=== PATIENT | female | born 1955 | race Caucasian/White ===

== ENCOUNTER → 2016-10-05 | Outpatient (CLI) | payer BC ==
[2016-10-05 12:35] LABS: HEMATOCRIT 39.2 % (36.0-47.0); HEMOGLOBIN 13.5 g/dL (12.0-15.5); HGB HCT DIFFERENCE 1.3; MEAN CORPUSCULAR HEMOGLOBIN 29.4 pg (27.0-33.4); MEAN CORPUSCULAR HGB CONC 34.4 g/dL (32.0-36.0); MEAN CORPUSCULAR VOLUME 86 fl (80-97); RED BLOOD COUNT 4.58 10^6/uL (3.72-5.28); RED CELL DISTRIBUTION WIDTH 12.9 % (11.5-14.0); WHITE BLOOD COUNT 7.4 10^3/uL (4.0-10.5)
[2016-10-05 13:17] LABS: ALANINE AMINOTRANSFERASE 26 U/L (9-52); ALBUMIN 4.2 g/dL (3.5-5.0); ALKALINE PHOSPHATASE 53 U/L (38-126); ASPARTATE AMINO TRANSFERASE 22 U/L (14-36); BILIRUBIN,DIRECT 0.5 mg/dL (0.0-0.4); BILIRUBIN,TOTAL 1.2 mg/dL (0.2-1.3); CHOLESTEROL 241.34 mg/dL (0-200); Direct HDL 57 mg/dL (>40); MAGNESIUM 2.2 mg/dL (1.6-2.3); TOTAL PROTEIN 6.9 g/dL (6.3-8.2); TRIGLYCERIDES 144 mg/dL (<150)
[2016-10-05 13:18] LABS: ANION GAP 10 (5-19); BLOOD UREA NITROGEN 19 mg/dL (7-20); CALCIUM 9.9 mg/dL (8.4-10.2); CARBON DIOXIDE 30 mmol/L (22-30); CHLORIDE 104 mmol/L (98-107); CREATININE RESULT 0.82 mg/dL (0.52-1.25); GLUCOSE 87 mg/dL (75-110); POTASSIUM 4.5 mmol/L (3.6-5.0); SODIUM 143.6 mmol/L (137-145)
[2016-10-05 13:28] LABS: DIRECT LDL 143 mg/dL (<100)
== END ==
LOC: OD 11:44
PROVIDERS: ATTEND Internal Medicine Cardiovascular Disease
DX: E78.2 Mixed hyperlipidemia (principal); R00.2 Palpitations
CPT/HCPCS: 36415; 80048; 80061; 80076; 83735; 84443; 85027

== ENCOUNTER 2018-02-10 18:46 | Observation (INO) | payer BC ==
[2018-02-10 19:47] LABS: APPEARANCE,URINE CLEAR; BILIRUBIN,URINE NEGATIVE (NEGATIVE); COLOR,URINE YELLOW; GLUCOSE, URINE NEGATIVE (NEGATIVE); KETONES,URINE NEGATIVE (NEGATIVE); LEUKOCYTE ESTERASE,URINE TRACE (NEGATIVE); NITRITE,URINE NEGATIVE (NEGATIVE); PROTEIN,URINE NEGATIVE (NEGATIVE); UROBILINOGEN,URINE NEGATIVE mg/dL (<2.0)
[2018-02-10 21:55] LABS: ALANINE AMINOTRANSFERASE 41 U/L (9-52); ALBUMIN 3.7 g/dL (3.5-5.0); ALKALINE PHOSPHATASE 63 U/L (38-126); ANION GAP 7 (5-19); ASPARTATE AMINO TRANSFERASE 26 U/L (14-36); BILIRUBIN,DIRECT 0.3 mg/dL (0.0-0.4); BILIRUBIN,TOTAL 0.8 mg/dL (0.2-1.3); BLOOD UREA NITROGEN 22 mg/dL (7-20); CALCIUM 9.1 mg/dL (8.4-10.2); CARBON DIOXIDE 29 mmol/L (22-30); CHLORIDE 106 mmol/L (98-107); CREATINE KINASE 67 U/L (30-135); GLUCOSE 107 mg/dL (75-110); POTASSIUM 4.1 mmol/L (3.6-5.0); SODIUM 141.6 mmol/L (137-145); TOTAL PROTEIN 6.6 g/dL (6.3-8.2)
[2018-02-10 22:09] LABS: CREATINE KINASE MB 1.54 ng/mL (<4.55)
[2018-02-10 22:10] LABS: TROPONIN I < 0.012 ng/mL
[2018-02-10 22:14] LABS: ABSOLUTE EOSINOPHILS # (AUTO) 0.1 10^3/uL (0.0-0.6); ABSOLUTE LYMPHOCYTES (AUTO) 2.3 10^3/uL (0.5-4.7); ABSOLUTE MONOCYTES (AUTO) 0.6 10^3/uL (0.1-1.4); ABSOLUTE NEUT (AUTO) 3.7 10^3/uL (1.7-8.2); BASOPHILS % (AUTO) 0.7 % (0-2); EOSINOPHILS % (AUTO) 1.9 % (0-6); HEMATOCRIT 38.4 % (36.0-47.0); HEMOGLOBIN 13.3 g/dL (12.0-15.5); LYMPHOCYTES % (AUTO) 33.4 % (13-45); MEAN CORPUSCULAR HEMOGLOBIN 29.1 pg (27.0-33.4); MEAN CORPUSCULAR HGB CONC 34.6 g/dL (32.0-36.0); MEAN CORPUSCULAR VOLUME 84 fl (80-97); MONOCYTES % (AUTO) 9.5 % (3-13); PLATELET COUNT 201 10^3/uL (150-450); RED BLOOD COUNT 4.57 10^6/uL (3.72-5.28); RED CELL DISTRIBUTION WIDTH 13.1 % (11.5-14.0); SEGMENTED NEUTROPHILS % (AUTO) 54.5 % (42-78); TOTAL CELLS COUNTED % (AUTO) 100 %; WHITE BLOOD COUNT 6.8 10^3/uL (4.0-10.5)
--- NOTE | 2018-02-10 22:53 | EKG REPORT ---
SEVERITY:- NORMAL ECG - SINUS RHYTHM : Confirmed by: Brooklyn Gan MD 10-Feb-2018 22:52:18
[2018-02-11] MEDS ORDERED: NORMAL SALINE 500 ML IV ONE (00:36)
--- NOTE | 2018-02-11 01:09 | RADIOLOGY REPORT (SQ) ---
CLINICAL HISTORY: dizziness, confusion COMPARISON: None. TECHNIQUE: CT HEAD WITHOUT IV CONTRAST on 02/11/2018 12:35 AM [employer] OFFICER This exam was performed according to our departmental dose-optimization program, which includes automated exposure control, adjustment of the mA and/or kV according to patient size and/or use of iterative reconstruction technique. FINDINGS: There is no acute hemorrhage, mass effect or midline shift. Butler-white differentiation is preserved. There is no hydrocephalus. There is no significant volume loss for age. There are mild patchy hypodensities within the periventricular and subcortical white matter, consistent with microangiopathic ischemic changes. The calvarium is intact. Orbits and globes are unremarkable. The paranasal sinuses are clear. Mastoid air cells are clear. IMPRESSION: No acute intracranial findings.
[2018-02-11] MEDS ORDERED: ASPIRIN 325 MG TABLET PO ONE (02:37)
--- NOTE | 2018-02-11 03:59 | ER Document Report ---
ED General - General Chief Complaint: Dizziness Stated Complaint: DIZZINESS Time Seen by Provider: 02/11/18 00:06 Notes: Patient is a pleasant 62-year-old female presents to the ED after having 2 episodes of confusion and dizziness. Patient that the first episode happened while she was at work. She says she suddenly felt unwell and felt dizzy. She said she then felt a little bit confused and disoriented. She sat down and waited for a while and eventually symptoms resolved and she decided to go home. On her way home her symptoms recurred and therefore she put this on the road and called her daughter. Patient's daughter says that her speech was garbled and she was not making a lot of sense. Daughter said she seemed very confused and disoriented. He then called the ambulance and the daughter met her mom at the road and said her mom was clammy and unwell appearing when she got to her. Patient's confusion and speech have normalized since then. She denies ever having any focal weakness or numbness in her legs. She says that ever since this occurred she is been unable to walk with any decent balance is unable to balance herself she is standing. She denies a spinning type sensation. She denies recent illness. Eyes any chest pain or shortness of breath. No sensation of abnormal heartbeats or rapid heartbeat. TRAVEL OUTSIDE OF THE [place] IN LAST 30 DAYS: No - Related Data Allergies/Adverse Reactions: No Known Allergies Allergy (Verified 02/10/18 18:51) Past Medical History - Social History Smoking Status: Never Smoker Frequency of alcohol use: None Drug Abuse: None Family History: Reviewed & Not Pertinent Patient has suicidal ideation: No Patient has homicidal ideation: No - Past Medical History Cardiac Medical History: Reports: Hx Hypertension - bp has been elevated lately, but is not on any medications Pulmonary Medical History: Reports: Hx Asthma Denies: Hx Tuberculosis Renal/ Medical History: Denies: Hx Peritoneal Dialysis - Immunizations Immunizations up to date: Yes Hx Diphtheria, Pertussis, Tetanus Vaccination: Yes Hx Pneumococcal Vaccination: 12/08/06 Review of Systems - Review of Systems Notes: My Normal Review Basic REVIEW OF SYSTEMS: CONSTITUTIONAL : Denies fever, chills, or sweats. Denies recent illness. EENT: Denies eye, ear, throat, or mouth pain or symptoms. Denies nasal or sinus congestion. CARDIOVASCULAR: Denies chest pain. RESPIRATORY: Denies cough, cold, or chest congestion. Denies shortness of breath, difficulty breathing, or wheezing. GASTROINTESTINAL: Denies abdominal pain. Denies nausea, vomiting, or diarrhea. GENITOURINARY: Denies difficulty urinating, painful urination, burning, frequency, or blood in urine. MUSCULOSKELETAL: Denies neck or back pain or joint pain or swelling. SKIN: Denies rash or skin lesions. NEUROLOGICAL: Episodes of altered mental status with difficulty talking. Patient has difficulty in relating. PSYCHIATRIC: Denies anxiety or stress or depression. ALL OTHER SYSTEMS REVIEWED AND NEGATIVE. Physical Exam - Vital signs Vitals: Temp Pulse Resp BP Pulse Ox 98.1 F 70 18 130/87 H 99 02/10/18 18:51 02/10/18 18:51 02/10/18 18:51 02/10/18 18:51 02/10/18 18:51 - Notes Notes: General Appearance: Well nourished, alert, cooperative, no acute distress, no obvious discomfort. Vitals: reviewed, See vital signs table. Head: no swelling or tenderness to the head Eyes: PERRL, EOMI, Conjuctiva clear Mouth: No decreasd moisture Throat: No tonsillar inflammation, No airway obstruction, No lymphadenopathy Neck: Supple, no neck tenderness, No thyromegaly Lungs: No wheezing, No rales, No rhonci, No accessory muscle use, good air exchange bilaterally. Heart: Normal rate, Regular rythm, No murmur, no rub Abdomen: Normal BS, soft, No rigidity, No abdominal tenderness, No guarding, no rebound, no abdominal masses, no organomegaly Extremities: strength 5/5 in all extremities, good pulses in all extremities, no swelling or tenderness in the extremities, no edema. Skin: warm, dry, appropriate color, no rash Neuro: speech clear, oriented x 3, normal affect, responds appropriately to ques tions. Cranial nerves II through XII are intact. Distal sensation intact. Patient has good strength in all 4 extremities. When I stand the patient she is off balance. I did have her do Romberg testing she immediately starts to fall to the side when she closes her eyes and her arms start to drift. Course - Re-evaluation Re-evalutation: 02/11/18 08:37 I concern is that the patient may have had a stroke. A basis of the history of the garbled speech and disorientation and the fact that now that she is unable to walk on her own without maintaining good balance and she has positive Romberg testing. CT scan of the head does not show any evidence of bleeding. I did give patient aspirin. I spoke with the hospitalist, Dr. Pena, who agrees to evaluate the patient for consideration for admission for further workup for s trowaylon. Dictation of this chart was performed using voice recognition software; therefore, there may be some unintended grammatical errors. - Vital Signs Vital signs: Temp Pulse Resp BP Pulse Ox 97.8 F 61 12 125/76 98 02/11/18 06:28 02/11/18 07:15 02/11/18 07:15 02/11/18 07:15 02/11/18 07:15 - Laboratory Result Diagrams: 02/10/18 21:55 02/10/18 21:20 Laboratory results interpreted by me: 02/10/18 02/10/18 19:15 21:20 BUN 22 H Ur Leukocyte Esterase TRACE H Discharge - Discharge Clinical Impression: Ataxia, Dizziness, Confusion Condition: Stable Disposition: ADMITTED OBSERVATION Admitting Provider: Hospitalist Unit Admitted: Telemetry
[2018-02-11] MEDS ORDERED: MAGNESIUM HYDROXIDE SUSP 30 ML UDCUP PO PRN (04:40)
--- NOTE | 2018-02-11 06:26 | PDOC H&P ---
History of Present Illness Admission Date/PCP: 02/11/18 04:51 ARELIS ROBERTO DO Patient complains of: Dizziness History of Present Illness: YINA GUZMAN is a 62 year old female with a past medical history of aortic regurgitation and asthma who is prompted to seek evaluation in the emergency room after several episodes of palpitations, followed by dizziness, generalized weakness, confusion and difficulty with speech. In the emergency room she is found to have complete resolution of complaints and an unremarkable workup. Patient denies previous episode, recent change in medications, heat or cold intolerance, headache nausea or vomiting. She is referred to the hospitalist for admission. Past Medical History Cardiac Medical History: Reports: Hypertension - bp has been elevated lately, but is not on any medications Pulmonary Medical History: Reports: Asthma Denies: Tuberculosis Social History Information Source: Patient Lives with: Family Smoking Status: Never Smoker Frequency of Alcohol Use: None Drugs: None - Advance Directive Resuscitation Status: Full Code Family History Family History: CVA Parental Family History Reviewed: Yes Children Family History Reviewed: Yes Sibling(s) Family History Reviewed.: Yes Medication/Allergy Home Medications: Albuterol Sulfate [Albuterol Sulfate Hfa] 2 puff IH PRN 08/05/13 Ibuprofen [Motrin Ib] 800 mg PO PRN 08/05/13 Allergies/Adverse Reactions: No Known Allergies Allergy (Verified 02/10/18 18:51) Review of Systems Constitutional: ABSENT: chills, fever(s), headache(s), weight gain, weight loss Eyes: ABSENT: visual disturbances Ears: ABSENT: hearing changes Cardiovascular: ABSENT: chest pain, dyspnea on exertion, edema, orthropnea, palpitations Respiratory: ABSENT: cough, hemoptysis Gastrointestinal: ABSENT: abdominal pain, constipation, diarrhea, hematemesis, hematochezia, nausea, vomiting Genitourinary: ABSENT: dysuria, hematuria Musculoskeletal: ABSENT: joint swelling Integumentary: ABSENT: rash, wounds Neurological: ABSENT: abnormal gait, abnormal speech, confusion, dizziness, focal weakness, syncope Psychiatric: ABSENT: anxiety, depression, homidical ideation, suicidal ideation Endocrine: ABSENT: cold intolerance, heat intolerance, polydipsia, polyuria Hematologic/Lymphatic: ABSENT: easy bleeding, easy bruising Physical Exam Vital Signs: Temp Pulse Resp BP Pulse Ox 98.1 F 59 L 16 156/92 H 96 02/10/18 18:51 02/11/18 04:52 02/11/18 04:52 02/11/18 04:52 02/11/18 04:52 Intake & Output 02/09/18 02/10/18 02/11/18 11:59 11:59 11:59 Intake Total 500 Balance 500 Weight 78.471 kg General appearance: PRESENT: no acute distress, well-developed, well-nourished Head exam: PRESENT: atraumatic, normocephalic Eye exam: PRESENT: conjunctiva pink, EOMI, PERRLA. ABSENT: scleral icterus Ear exam: PRESENT: normal external ear exam Mouth exam: PRESENT: moist, tongue midline Neck exam: ABSENT: carotid bruit, JVD, lymphadenopathy, thyromegaly Respiratory exam: PRESENT: clear to auscultation dayday. ABSENT: rales, rhonchi, wheezes Cardiovascular exam: PRESENT: RRR, systolic murmur. ABSENT: diastolic murmur, rubs Pulses: PRESENT: normal dorsalis pedis pul Vascular exam: PRESENT: normal capillary refill GI/Abdominal exam: PRESENT: normal bowel sounds, soft. ABSENT: distended, guarding, mass, organolmegaly, rebound, tenderness Rectal exam: PRESENT: deferred Extremities exam: PRESENT: full ROM. ABSENT: calf tenderness, clubbing, pedal edema Neurological exam: PRESENT: alert, awake, oriented to person, oriented to place, oriented to time, oriented to situation, CN II-XII grossly intact. ABSENT: motor sensory deficit Psychiatric exam: PRESENT: appropriate affect, normal mood. ABSENT: homicidal ideation, suicidal ideation Skin exam: PRESENT: dry, intact, warm. ABSENT: cyanosis, rash Results Laboratory Results: 02/10/18 21:55 02/10/18 21:20 02/10/18 02/10/18 02/10/18 19:15 21:20 21:20 WBC Cancelled RBC Cancelled Hgb Cancelled Hct Cancelled MCV Cancelled MCH Cancelled MCHC Cancelled RDW Cancelled Plt Count Cancelled Seg Neutrophils % Cancelled Lymphocytes % Cancelled Monocytes % Cancelled Eosinophils % Cancelled Basophils % Cancelled Absolute Neutrophils Cancelled Absolute Lymphocytes Cancelled Absolute Monocytes Cancelled Absolute Eosinophils Cancelled Absolute Basophils Cancelled Sodium 141.6 Potassium 4.1 Chloride 106 Carbon Dioxide 29 Anion Gap 7 BUN 22 H Creatinine 0.69 Est GFR ( Amer) > 60 Est GFR (Non-Af Amer) > 60 Glucose 107 Calcium 9.1 Total Bilirubin 0.8 AST 26 ALT 41 Alkaline Phosphatase 63 Total Protein 6.6 Albumin 3.7 TSH Urine Color YELLOW Urine Appearance CLEAR Urine pH 6.0 Ur Specific [place] 1.020 Urine Protein NEGATIVE Urine Glucose (UA) NEGATIVE Urine Ketones NEGATIVE Urine Blood NEGATIVE Urine Nitrite NEGATIVE Ur Leukocyte Esterase TRACE H Urine WBC (Auto) 1 Urine RBC (Auto) 1 02/10/18 02/10/18 21:20 21:55 WBC 6.8 RBC 4.57 Hgb 13.3 Hct 38.4 MCV 84 MCH 29.1 MCHC 34.6 RDW 13.1 Plt Count 201 Seg Neutrophils % 54.5 Lymphocytes % 33.4 Monocytes % 9.5 Eosinophils % 1.9 Basophils % 0.7 Absolute Neutrophils 3.7 Absolute Lymphocytes 2.3 Absolute Monocytes 0.6 Absolute Eosinophils 0.1 Absolute Basophils 0.0 Sodium Potassium Chloride Carbon Dioxide Anion Gap BUN Creatinine Est GFR ( Amer) Est GFR (Non-Af Amer) Glucose Calcium Total Bilirubin AST ALT Alkaline Phosphatase Total Protein Albumin TSH 1.11 Urine Color Urine Appearance Urine pH Ur Specific [place] Urine Protein Urine Glucose (UA) Urine Ketones Urine Blood Urine Nitrite Ur Leukocyte Esterase Urine WBC (Auto) Urine RBC (Auto) 02/10/18 02/10/18 21:20 21:20 Creatine Kinase 67 CK-MB (CK-2) 1.54 Troponin I < 0.012 Impressions: Head CT 02/11/18 00:35 IMPRESSION: No acute intracranial findings. Assessment & Plan - Diagnosis (1) TIA (transient ischemic attack) Is this a current diagnosis for this admission?: Yes Plan: CVA care set, follow-up carotid Doppler, head, 2D echo (2) Palpitations Is this a current diagnosis for this admission?: Yes Plan: Follow-up 2D echo and telemetry. - Time Time Spent: 50 to 70 Minutes
[2018-02-11] MEDS: HEPARIN SOD (PORCINE) 5,000 UNIT/ML 1 ML SYRINGE SUBCUT SCH ×3 (09:26→21:18)
[2018-02-11] MEDS: ASPIRIN 325 MG TABLET, ENT COATED PO SCH (09:36)
--- NOTE | 2018-02-11 09:36 | RADIOLOGY REPORT (SQ) ---
EXAM DESCRIPTION: MRI HEAD WITHOUT COMPLETED DATE/TIME: 02/11/2018 9:16 am REASON FOR STUDY: tia COMPARISON: None. TECHNIQUE: Multiplanar imaging includes non-contrasted T1, T2, FLAIR, and diffusion with ADC map seq uences. Images stored on PACS. LIMITATIONS: None. FINDINGS: ANATOMY: No anomalies. Normal vascular flow voids. Pituitary fossa normal. CSF SPACES: Normal in size and contour. No hemorrhage. CEREBRUM: Sulci and gyri normal in size and contour. Normal white matter signal on FLAIR imaging. No evidence of hemorrhage, mass, or extraaxial fluid collection. POSTERIOR FOSSA: No signal alteration. No hemorrhage. No edema, masses or mass effect. Internal emi tory canals, cerebello-pontine angles, mastoids normal. DIFFUSION IMAGING: Negative for acute or sub-acute infarction. ORBITS: No masses. Globes normal. PARANASAL SINUSES: No fluid levels. Mucosa normal. OTHER: No other significant finding. IMPRESSION: NORMAL MRI OF THE BRAIN WITHOUT INTRAVENOUS GADOLINIUM CONTRAST. EVIDENCE OF ACUTE STROKE: NO. TECHNICAL DOCUMENTATION: JOB ID: [id number] [employer]- All Rights Reserved Reading location - IP/workstation name: [email or web address]
[2018-02-11] MEDS: ACETAMINOPHEN 325 MG TABLET PO PRN ×2 (14:45→21:22)
--- NOTE | 2018-02-11 17:42 | RADIOLOGY REPORT (SQ) ---
EXAM DESCRIPTION: CAROTID DOPPLER COMPLETED DATE/TIME: 02/11/2018 4:00 pm REASON FOR STUDY: tia COMPARISON: None. TECHNIQUE: Grayscale ultrasound, Doppler velocity and spectra, and color Doppler images acquired of the extra-cranial carotid and vertebral arteries. Images stored on PACS. LIMITATIONS: None. FINDINGS: RIGHT CAROTID CCA Velocities: Within normal limits. ICA Velocities Peak systolic 0.81 m/s. End diastolic 0.38 m/s. Proximal ICA/CCA peak systolic ratio 1.2. Tortuous vessels LEFT CAROTID CCA Velocities: Within normal limits. ICA Velocities Peak systolic 1.5 m/s. End diastolic 0.58 m/s. Proximal ICA/CCA peak systolic ratio 1.4. Tortuous vessels. No suggestion of significant plaque or narrowing, however. VERTEBRAL ARTERIES: Antegrade flow. Normal waveforms. SUBCLAVIAN ARTERIES: No finding. OTHER: No other significant finding. IMPRESSION: 1. Mildly elevated velocities in the left internal carotid but significant plaque is not suggested. Likely related to vessel tortuosity. Surveillance followup is warranted. COMMENT: Quality ID #[id number]: Velocity criteria are extrapolated from the diameter data as defined by t he Society of Radiologists in Ultrasound Consensus Conference. Radiology 2003: 229; 340-346. TECHNICAL DOCUMENTATION: JOB ID: [id number] [employer]- All Rights Reserved Reading location - IP/workstation name: [email or web address]
[2018-02-11] MEDS ORDERED: ATORVASTATIN CALCIUM 80 MG TABLET PO SCH (22:00)
[2018-02-12] MEDS: HEPARIN SOD (PORCINE) 5,000 UNIT/ML 1 ML SYRINGE SUBCUT SCH (05:25)
[2018-02-12 06:45] LABS: CHOLESTEROL 211.05 mg/dL (0-200); TRIGLYCERIDES 142 mg/dL (<150)
[2018-02-12 06:56] LABS: DIRECT LDL 121 mg/dL (<100)
[2018-02-12] MEDS: ASPIRIN 325 MG TABLET, ENT COATED PO SCH (09:35)
[2018-02-12 11:42] VITALS: BP 106/65
--- NOTE | 2018-02-12 16:13 | XCELERA REPORT ---
[address] [address] Transthoracic Echocardiogram Report Name: YINA GUZMAN Age: 62 yrs Gender: Female : 1955 Patient Status: Inpatient Patient Location: [address] [place], [place] [address] Study Date: 02/11/2018 03:11 PM Height: 62 in Weight: 173 lb BSA: 1.8 m2 Reason For Study: tia palpitations aortic valve regurg Ordering Physician: NADEGE PONCE Performed By: Brenton Altamirano Interpretation Summary There is no obvious cardiac source of embolus noted on this transthoracic echocardiogram. Follow-up with a [facility] is suggested if cardiac source is still suspected. Suboptimal study vitaly. the apical 4 chamber views and apical 2 chamber views. Incomplete LV segmental analysis. see Pictorals. There is at least IVS hypokinesis., normal LVEF, no biplane LVEF measured/calculated. No LV dilatation, LVESD 28 mm. Mild aortic root sclerosis, no stenosis, mild AR with PHT 508 ms. No ao vegetations seen. MV appears normal, no MS, no MVP, and mildMR with no LA enlargement, no DEMIAN measured, no LA myxoma, no LA clot seen. R heart poorly seen, poor subcostal view. mild TR with no pulm hypertension suspected. ,no ASD by color doppler, no contrast study done in RA. . Occasional PVCs seen, needs Holter to full assess PVC burden. MMode/2D Measurements & Calculations RVDd: 3.0 cm LVIDd: 4.1 cm FS: 28.1 % Ao root diam: 2.8 cm IVSd: 0.73 cm LVIDs: 3.0 cm EDV(Teich): 75.3 ml LVPWd: 0.72 cm ESV(Teich): 34.0 ml Ao root area: 6.0 cm2 LA dimension: 3.2 cm EF(Teich): 54.8 % LVOT diam: 2.0 cm LVOT area: 3.0 cm2 Doppler Measurements & Calculations MV E max crescencio: MV P1/2t max crescencio: Ao V2 max: AI max crescencio: 61.2 cm/sec 55.2 cm/sec 146.4 cm/sec 281.2 cm/sec MV A max crescencio: MV P1/2t: 79.8 msec Ao max PG: AI max P.7 cm/sec MVA(P1/2t): 2.8 cm2 8.6 mmHg 31.6 mmHg MV E/A: 1.0 MV dec slope: MARTIN(V,D): 1.5 cm2 AI dec slope: 161.7 cm/sec2 202.4 cm/sec2 AI P1/2t: MV dec time: 509.4 msec 0.20 sec LV V1 max PG: PA V2 max: PI end-d crescencio: TR max crescencio: 2.2 mmHg 76.0 cm/sec 85.5 cm/sec 214.5 cm/sec LV V1 max: PA max P.3 mmHg TR max P.5 cm/sec 18.4 mmHg AV P1/2t-pr_phl: MV P1/2t-pr_phl: 509.4 msec 79.8 msec Left Ventricle The left ventricle is grossly normal size. There is normal left ventricular wall thickness. The left ventricular ejection fraction is normal. The E/E' ratio between the mitral E wave and the mitral annulus E' wave is normal, with a value of < 10. Not all wall segments were well visualized. very poor basal Apical 4 chamber visualization, very poor apical 2 chamber view. There is septal wall mild hypokinesis. There is no thrombus. Right Ventricle The right ventricle is not well visualized secondary to technical limitations. Atria The right atrium is normal. The left atrial size is normal. There is no Doppler evidence for an interatrial shunt. Mitral Valve There is no mitral annular calcification. There is no evidence of mitral valve prolapse. There is no vegetation seen on the mitral valve. There is no mitral valve stenosis. There is a mild amount of mitral regurgitation. Aortic Valve The aortic valve opens well. The aortic valve is sclerotic and shows some degree of functional abnormality. There is no aortic valvular vegetation. There is no aortic valve stenosis. There is a mild amount of aortic regurgitation. Tricuspid Valve The tricuspid valve is not well visualized secondary to technical limitations. There is a trace or physiologic amount of tricuspid regurgitation. Doppler findings do not suggest pulmonary hypertension. Pulmonic Valve The pulmonic valve is not well seen, but is grossly normal. There is a trace or physiologic amount of pulmonic regurgitation. Great Vessels The aortic root is normal size. There is aortic root sclerosis/calcification. Effusions Minimal pericardial effusion. I WMSI = 1.18 % Normal = 82 Segments Size X - Cannot 1 - Normal 2 - 3 - Akinetic4 - 1-2 small Interpret Hypokinetic Dyskinetic 3-5 moderate 5 - 6-14 large Aneurysmal 15-16 diffuse : NADEGE PONCE > Byron Paulson
--- NOTE | 2018-02-16 16:49 | PDOC DISCHARGE SUMMARY ---
General - Admit/Disc Date/PCP Admission Date/Primary Care Provider: 02/11/18 04:51 ARELIS ROBERTO, Discharge Date: 02/12/18 - Discharge Diagnosis (1) TIA (transient ischemic attack) Is this a current diagnosis for this admission?: Yes - Additional Information Resuscitation Status: Full Code Discharge Diet: Cardiac Discharge Activity: Activity As Tolerated Prescriptions: Aspirin [Adult Low Dose Aspirin EC] 81 mg PO DAILY #60 tablet. Atorvastatin Calcium [Lipitor 40 mg Tablet] 40 mg PO QHS #30 tablet Lisinopril [Prinivil 2.5 mg Tablet] 2.5 mg PO DAILY #30 tablet Home Medications: Aspirin [Adult Low Dose Aspirin EC] 81 mg PO DAILY #60 tablet. 02/12/18 Atorvastatin Calcium [Lipitor 40 mg Tablet] 40 mg PO QHS #30 tablet 02/12/18 Lisinopril [Prinivil 2.5 mg Tablet] 2.5 mg PO DAILY #30 tablet 02/12/18 History of Present Illness History of Present Illness: Admitting hospitalist's H&P: YINA GUZMAN is a 62 year old female with a past medical history of aortic regurgitation and asthma who is prompted to seek evaluation in the emergency room after several episodes of palpitations, followed by dizziness, generalized weakness, confusion and difficulty with speech. In the emergency room she is found to have complete resolution of complaints and an unremarkable workup. Patient denies previous episode, recent change in medications, heat or cold intolerance, headache nausea or vomiting. She is referred to the hospitalist for admission for a possible TIA. Hospital Course Hospital Course: This is a 62 year old female with a past medical history of aortic regurgitation and asthma who is prompted to seek evaluation in the emergency room after several episodes of palpitations, followed by dizziness, generalized weakness, confusion and difficulty with speech. Her daughter did say patient had slurring of speech for a few minutes. She had complete resolution of her symptoms on admission. Carotid doppler was only remarkable for mildly elev velocitis on the left ICA possibly more due to vessel tortuosity. MRI braiin was unremarkable. She was started on aspirin and statin. Physical Exam Vital Signs: Temp Pulse Resp BP Pulse Ox 98.0 F 59 L 12 106/65 99 02/12/18 12:29 02/12/18 12:29 02/12/18 12:29 02/12/18 12:29 02/12/18 12:29 Intake & Output 02/11/18 02/12/18 02/13/18 06:59 06:59 06:59 Intake Total 500 1345 Balance 500 1345 Weight 172 lb 2.896 oz 171 lb 4.787 oz General appearance: PRESENT: no acute distress, well-developed, well-nourished Head exam: PRESENT: atraumatic, normocephalic Eye exam: PRESENT: conjunctiva pink, EOMI, PERRLA. ABSENT: scleral icterus Ear exam: PRESENT: normal external ear exam Neck exam: ABSENT: carotid bruit, JVD, lymphadenopathy, thyromegaly Respiratory exam: PRESENT: clear to auscultation dayday. ABSENT: rales, rhonchi, wheezes Cardiovascular exam: PRESENT: RRR. ABSENT: diastolic murmur, rubs, systolic murmur Pulses: PRESENT: normal dorsalis pedis pul GI/Abdominal exam: PRESENT: normal bowel sounds, soft. ABSENT: distended, guarding, mass, organolmegaly, rebound, tenderness Rectal exam: PRESENT: deferred Extremities exam: PRESENT: full ROM. ABSENT: calf tenderness, clubbing, pedal edema Neurological exam: PRESENT: alert, awake, oriented to person, oriented to place, oriented to time, oriented to situation, CN II-XII grossly intact. ABSENT: motor sensory deficit Results Laboratory Results: 02/10/18 21:55 02/10/18 21:20 02/12/18 05:13 Triglycerides 142 Cholesterol 211.05 H LDL Cholesterol Direct 121 H VLDL Cholesterol 28.0 HDL Cholesterol 48 02/10/18 02/10/18 21:20 21:20 Creatine Kinase 67 CK-MB (CK-2) 1.54 Troponin I < 0.012 Impressions: Head MRI 02/11/18 00:00 IMPRESSION: NORMAL MRI OF THE BRAIN WITHOUT INTRAVENOUS GADOLINIUM CONTRAST. EVIDENCE OF ACUTE STROKE: NO. Head CT 02/11/18 00:35 IMPRESSION: No acute intracranial findings. Carotid Doppler Study 02/11/18 04:41 IMPRESSION: 1. Mildly elevated velocities in the left internal carotid but significant plaque is not suggested. Likely related to vessel tortuosity. Surveillance followup is warranted. Qualifiers - * PATIENT BEING DISCHARGED WITH ANY OF THE FOLLOWING DIAGNOSIS: No
== END 2018-02-12 13:27 | disposition home or self-care (01) ==
LOC: ER 18:46 → EH 02-11 04:51 → 3S 02-11 06:29
PROVIDERS: ADMIT Internal Medicine; ATTEND Internal Medicine
DX: G45.9 Transient cerebral ischemic attack, unspecified (principal); R00.2 Palpitations; R27.0 Ataxia, unspecified; Z79.899 Other long term (current) drug therapy; Z79.82 Long term (current) use of aspirin; Z82.3 Family history of stroke; J45.909 Unspecified asthma, uncomplicated; Z86.79 Personal history of other diseases of the circulatory system; Z23 Encounter for immunization
CPT/HCPCS: 93005; 99285; 96360; 36415 ×3; 82553; 82550; 84443; 85025; 85652; 80053; 81001; 84484; 83036; 80061; 93306; 93880; 70551; 70450; 90686; 93010; G0378 ×2; J1644 ×2; J3490 ×2; J7040

== ENCOUNTER 2020-01-24 11:07 | Emergency (ER) | payer BC ==
--- NOTE | 2020-01-24 13:09 | ER Document Report ---
ED Hand/Wrist Injury - General Chief Complaint: Hand Pain Stated Complaint: LEFT HAND PAIN,SWELLING Time Seen by Provider: 01/24/20 13:04 TRAVEL OUTSIDE OF THE [place] IN LAST 30 DAYS: No - HPI Notes: 64-year-old female presents to ED for evaluation of left hand pain sustained for last several days. She works as a production service manager at [employer] and notes that she has worsening pain along the first digit of the hand into the wrist. Denies trauma or injury. Does multiple repetitive motions. Has not had much improvement with [id number] oral analgesics. Denies any known injuries. States that she does to heavy lifting and rearranging of things within the store. Endorses no paresthesias or radiation of pain into the wrist or elbow. Denies other complaints. - Related Data Allergies/Adverse Reactions: No Known Allergies Allergy (Verified 01/24/20 12:58) Home Medications: denies Past Medical History - Social History Smoking Status: Never Smoker Chew tobacco use (# tins/day): No Frequency of alcohol use: None Drug Abuse: None Family History: Reviewed & Not Pertinent Patient has homicidal ideation: No - Past Medical History Cardiac Medical History: Reports: Hx Hypercholesterolemia, Hx Hypertension Pulmonary Medical History: Reports: Hx Asthma Denies: Hx Tuberculosis Renal/ Medical History: Denies: Hx Peritoneal Dialysis Psychiatric Medical History: Denies: Hx Depression - Immunizations Immunizations up to date: Yes Hx Diphtheria, Pertussis, Tetanus Vaccination: Yes Hx Pneumococcal Vaccination: 12/08/06 Review of Systems - Review of Systems Notes: Constitutional: Negative for fever. HENT: Negative for sore throat. Eyes: Negative for visual changes. Cardiovascular: Negative for chest pain. Respiratory: Negative for shortness of breath. Gastrointestinal: Negative for abdominal pain, vomiting or diarrhea. Genitourinary: Negative for dysuria. Musculoskeletal: Negative for back pain. + for left hand pain. Skin: Negative for rash. Neurological: Negative for headaches, weakness or numbness. 10 point ROS negative except as marked above and in HPI. Physical Exam - Vital signs Vitals: Temp Pulse Resp BP Pulse Ox 97.9 F 80 16 186/96 H 99 01/24/20 11:13 01/24/20 11:13 01/24/20 11:13 01/24/20 11:13 01/24/20 11:13 General: No acute distress. Alert and oriented x3. Skin: No jaundice, pallor, or rashes. Warm and dry. Musculoskeletal: Left Hand: Swelling and tenderness to palpation along 1st MCP and thenar emenence. No erythema, ecchymosis, deformities or rashes. Strength and sensation is intact. Ttenderness to palpation. No tenderness about anatomi celine snuffbox. Digits 1-5 with good flexion and extension about MCP, PIP and DIP joints with discomfort. Brisk capillary refill. Radial pulses 2+ bilaterally. Wrist nontender with good range of motion. Neuro: GCS 15. Course - Re-evaluation Re-evalutation: 01/24/20 14:51 64-year-old female presents to ED for evaluation of left hand pain. Patient was evaluated with x-rays which Xrays were negative for fracture or dislocation. Osteoarthritis is noted with concern for underlying tendinitis. Imaging was discussed with patient. Patient is advised that soft tissue injury or ligamentous tear cannot be ruled out. Patient is advised to rest, ice and elevate the extremity. Apply ice to the affected area 20 minutes on, 20 minutes off throughout the day. Patient is given a prescription for pain management and. Advised to be nonweightbearing. Patient is given a referral to orthopedics for follow up. Undertands indications to return to the ED. Understands course of management. Patient is in agreement with care plan. 01/24/20 14:52 - Vital Signs Vital signs: Temp Pulse Resp BP Pulse Ox 98.0 F 63 16 143/93 H 99 01/24/20 14:54 01/24/20 14:54 01/24/20 14:54 01/24/20 14:54 01/24/20 14:54 - Laboratory Results Critical Laboratory Results Reviewed: No Critical Results - Radiology Results Critical Radiology Results Reviewed: No Critical Results Discharge - Discharge Clinical Impression: Tendonitis Osteoarthritis of hand Qualifiers: Osteoarthritis type: unspecified Laterality: left Qualified Code(s): M19.042 - Primary osteoarthritis, left hand Condition: Stable Disposition: HOME, SELF-CARE Instructions: Arthritis ([facility]) Prescriptions: Ketorolac Tromethamine [Toradol 10 mg Tablet] 10 mg PO Q8HP PRN #15 tablet PRN Reason: Forms: Return to Work
--- NOTE | 2020-01-24 13:36 | RADIOLOGY REPORT (SQ) ---
EXAM DESCRIPTION: HAND LEFT 3 VIEWS IMAGES COMPLETED DATE/TIME: 01/24/2020 1:26 pm REASON FOR STUDY: trauma COMPARISON: None. EXAM PARAMETERS: NUMBER OF VIEWS: Three views. TECHNIQUE: AP, lateral and oblique radiographic images acquired of the left hand. LIMITATIONS: None. FINDINGS: MINERALIZATION: Osteopenia. BONES: No acute fracture or dislocation. No worrisome bone lesions. JOINTS: Intact. Osteoarthritis base of 1st metacarpal and interphalangeal joints. SOFT TISSUES: No soft tissue swelling. No foreign body. OTHER: No other significant finding. IMPRESSION: No acute findings. TECHNICAL DOCUMENTATION: JOB ID: [id number] 2010 [employer]- All Rights Reserved Reading location - IP/workstation name: [email or web address]
[2020-01-24 14:55] VITALS: BP 143/93
== END 2020-01-24 15:24 | disposition home or self-care (01) ==
LOC: ER 11:07
DX: M19.042 Primary osteoarthritis, left hand (principal); M77.9 Enthesopathy, unspecified; M79.642 Pain in left hand; I10 Essential (primary) hypertension; J45.909 Unspecified asthma, uncomplicated
CPT/HCPCS: 99283